=== PATIENT | male | born 1940 | race Caucasian/White ===

== ENCOUNTER 2022-09-09 06:56 | Emergency (ER) | payer OTHER, MEDICARE, SELFPAY ==
[2022-09-09] VITALS (55 sets, daily range): BP systolic 42–136; BP diastolic 33–95; PULSE 42–125; RESP 11–48; TEMP 36.6–38.2; O2SAT 83–100
--- NOTE | ~2022-09-09 | XR_ITS ---
XR chest 1V portable 09/09/2022 08:28 Indication: Shortness of breath. Patient unresponsive. Procedure: AP portable chest Comparison: No prior studies for comparison. Findings: Borderline heart size. Shallow inspiration. Subtle right basilar infiltrates, most likely a telectasis. No focal pneumonia, edema, pleural effusion or pneumothorax. No acute osseous abnormality . Impression: 1: Right basilar atelectasis. Reviewed, dictated and finalized at location A. Impression: 1: Right basilar atelectasis.
--- NOTE | 2022-09-09 07:26 | ED.AMS ---
HPI - Altered Mental Status General Chief Complaint: Altered Mental Status Stated Complaint: unresponsive Time Seen by Provider: 09/09/22 07:26 Source: EMS Mode of arrival: EMS Limitations: clinical condition History of Present Illness HPI narrative: 82 years old white male came to the emergency room from emergency room by ambulance with unresponsiveness, labored breathing. Started 45 minutes prior to arrival. Patient arrived with BMV. Patient unresponsive to painful stimuli. Patient is DNI, DNR. The son and his at the bedside, requested no invasive procedures, Related Data Allergies Allergy/AdvReac Type Severity Reaction Status Date / Time dronedarone Allergy Unknown Verified 09/09/22 07:13 Iodinated Contrast Media Allergy Unknown Verified 09/09/22 07:14 Review of Systems Review of Systems: All systems reviewed & are unremarkable except as noted in HPI and below Exam Narrative: General appearance: Well-developed, well-nourished, unresponsive to painful stimuli Skin: Warm to touch Head: Normocephalic, nontraumatic Eyes: Clear conjunctiva ENT: 100% on nonrebreather on Neck: Supple, Chest and respiratory: Labored breathing, accessory muscle active, diminution of air entry bilaterally Heart: Tachycardia Abdomen: Soft, nontender, no organomegaly, quiet bowel sounds V Neurologic: Unresponsive to painful stimuli Course Vital Signs Vital signs: Vital Signs Pulse Oximetry 100 09/09/22 06:55 Oxygen Delivery Non-Rebreather Mask 09/09/22 06:55 Oxygen Flow Rate 15 09/09/22 06:55 Temperature 36.6 C 09/09/22 08:45 Pulse Rate 42 L 09/09/22 16:33 Respiratory Rate 24 H 09/09/22 15:52 Blood Pressure 45/36 L 09/09/22 15:32 Pulse Oximetry 95 09/09/22 15:52 Oxygen Delivery High Flow Therapy with Nasal Cannula 09/09/22 07:30 Oxygen Flow Rate 10 09/09/22 07:30 MDM - Altered Mental Status MDM Narrative Medical decision making narrative: Patient is 82 years white male came from [facility] with shortness of breath and unresponsiveness to painful stimulation. Patient is DNI, DNR. Arrived by EMT, and 100% nonrebreather. Patient's son and his [id number] were at the bedside when I went see the patient in the room, both confirmed that the patient is DNR, DNI , they requested comfort measures and no invasive procedures. But they would like to know what is the diagnosis. Physical examination showed unresponsive patient to painful stimulation, 100% nonrebreather, blood pressure of 110/82, heart rate of 125 and respiratory rate 42/min with temperature of 38.2. Septic protocol, COVID test, chest x-ray, acetaminophen IV, IV fluid ordered. Blood work-up showed normal white count of 7.1 otherwise insignificant abnormality, CMP showed creatinine of 1.5, no old records for comparison, troponin of 2.7, and a positive COVID test. EKG showed multifocal atrial tachycardia left axis deviation left bundle branch block abnormal EKG, no old EKG for comparison Chest x-ray showed right basilar atelectasis. The family was debating to [facility] patient back [facility] in order to admit him to our facility for hospice. pharmacy care coordinator got consulted, hospice consult consulted, patient was admitted to hospice inpatient. Patient condition got deteriorated, blood pressure dropped to 45/36, pulse at 42, respiratory rate at 24,. Patient was pronounced at 16: 43. Family at the bedside. Dr. Harkins was notified. Agreed to sign the certificate Lab Data 09/09/22 07:57 09/09/22 07:57 Labs: Lab Results 09/09/22 09/09/22 09/09/22 Range/Units 07:57 07:57 07:57 WBC 7.1 (4.5-10.0) K/mm3 RBC 4.67 (4.6-6
--- NOTE | 2022-09-09 07:29 | ECG_ITS ---
Measurements Intervals [place] Rate: 107 P: [place]: 0 QRS: -73 QRSD: 120 T: 72 QT: 323 QTc: 432 Interpretive Statements MULTIFOCAL ATRIAL TACHYCARDIA FREQUENT ATRIAL AND VENTRICULAR PREMATURE COMPLEXES LEFT AXIS DEVIATION LEFT BUNDLE BRANCH BLOCK BASELINE ARTIFACT- I, II, AVR, AVL, AVF, V1 ABNORMAL ECG NO PREVIOUS ECG AVAILABLE FOR COMPARISON Electronically Signed On 09-09-2022 8:19:47 CDT by Cecilio White D.O.
[2022-09-09 08:03] LABS: Basophils Percent Auto 0.4 % (0.2-1.2); Eosinophils Absolute Auto 0.1 K/mm3 (0-0.3); Hematocrit 44.3 % (42.0-52.0); Immature Granulocyte Absolute 0.02 K/mm3 (0.00-0.031); Immature Granulocyte Percent A 0.3 % (0-0.5); Lymphocytes Absolute Auto 0.95 K/mm3 (0.9-3.2); Lymphocytes Percent Auto 13.4 % (18.3-44.2); Mean Corpuscular HGB Conc 31.6 g/dl (32-36); Mean Corpuscular Volume 94.9 fl (80-100); Mean Platelet Volume 10.7 fl (7.4-10.4); Monocytes Absolute Auto 0.5 K/mm3 (0.1-0.6); Monocytes Percent Auto 7.6 % (2.6-8.5); Neutrophils Absolute Auto 5.4 K/mm3 (1.3-6.7); Neutrophils Percent Auto 76.3 % (45.5-73.1); Platelet Count Result 241 k/mm3 (150-375); Red Blood Count 4.67 M/mm3 (4.6-6.20); Red Cell Distribution Width 14.2 % (11.5-14.5); White Blood Count 7.1 K/mm3 (4.5-10.0)
[2022-09-09 08:13] LABS: Lactic Acid Reflex 1.3 mmol/L (0.7-2.0)
[2022-09-09] MEDS: ONDANSETRON INJ 4 MG/2 ML VIAL IV PUSH (08:16)
[2022-09-09 08:17] LABS: Alanine Aminotransferase 20 U/L (6-50); Albumin Level 4.4 g/dL (3.5-5.1); Alkaline Phosphatase 75 U/L (38-126); Anion Gap 8 mmol/L (8-16); Aspartate Amino Transferase 36 U/L (17-59); Bilirubin,Total 0.8 mg/dL (0.2-1.3); Blood Urea Nitrogen 24 mg/dL (9-20); CRP 1.6 mg/dL (<1.0); Calcium 9.4 mg/dL (8.4-10.2); Carbon Dioxide 26 mmol/L (22-30); Chloride 106 mmol/L (98-107); Estimated Glomerular Filt Rate 45; Glucose 126 mg/dL (65-110); Potassium 4.5 mmol/L (3.4-5.0); Sodium 140 mmol/L (137-145)
[2022-09-09 08:19] LABS: INR 1.4; Prothrombin Time 16.5 Seconds (11.1-14.7)
[2022-09-09 08:21] LABS: Partial Thromboplastin Time 35.3 SECONDS (22.3-36.8)
--- NOTE | 2022-09-09 08:21 | PC.NURSE ---
Pt is not responding, SOB on O2 10L/ high flow mask, family at bedside aware of pt's condition.
[2022-09-09 08:40] LABS: Influenza A QL RT-PCR Negative (Negative); Influenza B QL RT-PCR Negative (Negative); SARS-CoV-2 RNA PCR Positive
--- NOTE | 2022-09-09 12:30 | PC.NURSE ---
Addendum entered by Terrie Stearns RN 09/09/22 12:49: Pt had large loose brown/yellow BM at this time. Pt linen changes, nonblanchable reddened area noted to coccyx at this time. Pt had continue BM during linen changed. Chucks applied and will change within the hour. Family aware of BM and verbalized understanding to hit call light if need arises. Original Note: Pt had large loose brown/yellow BM at this time
--- NOTE | 2022-09-09 13:49 | PCCCNOTE ---
Called to ED to arrange Hospice Referral. Pt unable to communicate d/t poor condition. I spoke with son who is POA. Son is in agreement that they wish no further medical intervention and would like hospice. he had no particular agency that he wanted. [facility] contacted. Information given to Anastacia [phone] and she stated that a nurse will contact me shortly. Info fax to [facility] at [phone] and [phone].
--- NOTE | 2022-09-09 14:06 | PC.NURSE ---
Fecal containment device inserted at this time. Balloon inflated to 45ml. Soiled linen changed at this time. Family returned to bedside at this time.
[2022-09-09] MEDS: SODIUM CHLORIDE 0.9% IV 1,000 ML 125 ML IV CONT (14:27)
--- NOTE | 2022-09-09 15:10 | PC.NURSE ---
Arianne with [facility] hospice here at this time.
--- NOTE | 2022-09-09 16:28 | PC.NURSE ---
Arianne, Hospice nurse at bedside and requested family to come to bedside time due to decreased V/S at this time
--- NOTE | 2022-09-09 17:21 | PC.NURSE ---
Addendum entered by Terrie Stearns RN 09/09/22 17:26: [facility] called at this time to notify MD Torin. Spoke with KALA Romero at facility who stated she will call Dr. Harkins and have him call [place]. Hospital number provided. Original Note: [facility] called at this time to notify MD Torin.
--- NOTE | 2022-09-09 17:27 | PC.NURSE ---
Azam Caro, stated family will be leaving the facility at this time.
--- NOTE | 2022-09-09 17:33 | PC.NURSE ---
Dr. Harkins called facility at this time and made aware of time of /cause of and home information at this time. Dr. Harkins confirmed he would sign certificate.
--- NOTE | 2022-09-09 18:15 | PC.NURSE ---
Addendum entered by Terrie Stearns RN 09/09/22 18:30: IV and potter catheter removed at this time. home staff requested to keep FCD in at this time to facilitate drainage at home and will be removed at later time today. home here for pt transfer at this time. Original Note: home here for pt transfer at this time.
--- NOTE | 2022-09-10 16:01 | P.HP_ITS ---
H&P: HPI History of Present Illness Date/Time: 09/10/22 16:01 Chief Complaint: uncontrolled dyspnea Narrative: presented to ed due to increasing dyspnea and confusion, found to be covid positive, admitted to inpatient hospice for symptoms control Review of Systems Review of Systems: ROS unobtainable: Yes unobtainable due to medical condition PMFSH Social History Social History (Updated 09/10/22 @ 16:04 by Jeffery Hill MD) Smoking status: Former smoker Meds Home Medications and Allergies Allergies Allergy/AdvReac Type Severity Reaction Status Date / Time dronedarone Allergy Unknown Verified 09/09/22 07:13 Iodinated Contrast Media Allergy Unknown Verified 09/09/22 07:14 Vital Signs Vital Signs - 24 hr 09/09/22 16:33 Pulse Rate 42 L Exam Narrative: prior to exam Assessment and Plan Assessment and plan (1) Palliative care encounter: Code(s): Z51.5 - Encounter for palliative care Status: Acute Assessment and Plan: * Meets inpatient hospice criteria due to requiring IV narcotic for symptom management (2) Pneumonia due to COVID-19 virus: Code(s): U07.1 - COVID-19; J12.82 - Pneumonia due to coronavirus disease 2019 Status: Acute
--- NOTE | 2022-09-10 16:05 | PM.DDS ---
Discharge Summary Date and Time Date of : 09/09/22 Time of : 16:43 Probable Cause of Probable Cause of : covid 19 pneumonia Summary Hospital Course: Admitted to inpatient hospice service for symptom management. comfortably shortly after admission. Additional Data Confirmation of as documented by pronouncing clinician: Palpable Pulses and Breath Sounds Family Requests Autopsy: No Developmental Writing Instructor Notified: Yes Date [facility] Notified of : 09/09/[address] [facility] Notified of : 17:08
== END 2022-09-09 13:57 | disposition hospice, inpatient (51) | DRG 951 ==
LOC: ANHED 09-14 07:09 → ANH2MED 09-14 16:18
PROVIDERS: Emergency Provider Emergency Medicine; PCP Internal Medicine Geriatric Medicine; Visit Provider Family Medicine
DX: U07.1 COVID-19 (principal); J96.01 Acute respiratory failure with hypoxia; Z66 Do not resuscitate; I47.1 Supraventricular tachycardia; I49.1 Atrial premature depolarization; I49.3 Ventricular premature depolarization; I44.7 Left bundle-branch block, unspecified
CPT/HCPCS: 36415; 71045; 80053; 83605; 84484; 85025; 85610; 85730; 86140; 87040; 87636; 93005; 96361; 96365; 96375; 96376; 99284; J0131; J2405; J7030

== ENCOUNTER 2022-09-09 13:58 | HOS | payer OTHER, SELFPAY ==
--- NOTE | 2022-09-10 16:05 | HP_ITS ---
This report was moved to the correct visit on 11/27/2022. Original report was signed by Jeffery Hill MD on 09/10/2022 [id number]. H&P: HPI History of Present Illness Date/Time: 09/10/22 16:01 Chief Complaint: uncontrolled dyspnea Narrative: presented to ed due to increasing dyspnea and confusion, found to be covid positive, admitted to inpatient hospice for symptoms control Review of Systems Review of Systems: ROS unobtainable: Yes unobtainable due to medical condition PMFSH Social History Social History (Updated 09/10/22 @ 16:04 by Jeffery Hill MD) Smoking status: Former smoker Meds Home Medications and Allergies Allergies Allergy/AdvReac Type Severity Reaction Status Date / Time dronedarone Allergy Unknown Verified 09/09/22 07:13 Iodinated Contrast Media Allergy Unknown Verified 09/09/22 07:14 Vital Signs Vital Signs - 24 hr 09/09/22 16:33 Pulse Rate 42 L Exam Narrative: prior to exam Assessment and Plan Assessment and plan (1) Palliative care encounter: Code(s): Z51.5 - Encounter for palliative care Status: Acute Assessment and Plan: * Meets inpatient hospice criteria due to requiring IV narcotic for symptom management (2) Pneumonia due to COVID-19 virus: Code(s): U07.1 - COVID-19; J12.82 - Pneumonia due to coronavirus disease 2019 Status: Acute This report may have been done utilizing a voice recognition system. Attempts have been made to correct errors. However, there may be uncorrected grammatical, spelling, and recognition errors present. Report Initialized date/time: Jeffery Hill MD 09/10/22 / 1605 Electronically signed by: Jeffery Hill MD 09/10/22 0128 [facility]
--- NOTE | 2022-09-10 16:06 | DS_ITS ---
This report was moved to the correct visit on 11/27/2022. Original report was signed by Jeffery Hill MD on 09/10/2022. Discharge Summary Date and Time Date of : 09/09/22 Time of : 16:43 Probable Cause of Probable Cause of : covid 19 pneumonia Summary Hospital Course: Admitted to inpatient hospice service for symptom management. comfortably shortly after admission. Additional Data Confirmation of as documented by pronouncing clinician: Palpable Pulses and Breath Sounds Family Requests Autopsy: No Shopping Inspector Notified: Yes Date [facility] Notified of : 09/09/22 Time [facility] Notified of : 17:08 This report may have been done utilizing a voice recognition system. Attempts have been made to correct errors. However, there may be uncorrected grammatical, spelling, and recognition errors present. Report Initialized date/time: Jeffery Hill MD 09/10/22 / 1606 Electronically signed by: Jeffery Hill MD 09/10/22 1606 [facility]
== END 2022-09-09 16:43 | disposition expired | DRG 951 ==
LOC: ANHICU 11-27 11:39
PROVIDERS: Admitting Provider Family Medicine; PCP Internal Medicine Geriatric Medicine; Visit Provider Internal Medicine
DX: Z51.5 Encounter for palliative care (principal); U07.1 COVID-19; J12.82 Pneumonia due to coronavirus disease 2019; J96.01 Acute respiratory failure with hypoxia; Z66 Do not resuscitate